=== PATIENT | female | born 1985 | race Caucasian/White ===

== ENCOUNTER 2025-03-27 11:43 | Emergency (ER) | payer OTHER ==
[~2025-03-27] VITALS: Ht 165.1 cm; Wt 111.6 kg
[2025-03-27] MEDS ORDERED: OFLOXACIN 10 ML10 M2 OT (12:41)
[2025-03-27] MEDS ORDERED: AMOX-CLAV 875-1 EACH PO (12:41)
[2025-03-27] MEDS ORDERED: Amoxicillin/Clavulanate Pota 875 MG TAB PO ONE ×2 (12:45)
[2025-03-27] MEDS ORDERED: OFLOXACIN 0.3% 5 ML BOTTLE OT ONE (12:45)
== END 2025-03-27 12:48 | disposition home or self-care (01) ==
LOC: ED 11:43
DX: T16.1XXA Foreign body in right ear, initial encounter (principal); X58.XXXA Exposure to other specified factors, initial encounter; Y93.89 Activity, other specified; Y92.89 Other specified places as the place of occurrence of the external cause; Y99.8 Other external cause status